=== PATIENT | female | born 1995 | race Caucasian/White ===

== ENCOUNTER 2023-10-18 23:40 | Emergency (ER) | payer MEDICAID ==
[~2023-10-18] VITALS: Ht 157.5 cm; Wt 61.7 kg
[2023-10-18 23:50] VITALS: BP_SYST 132; PULSE 80; RESP 19; TEMP 97.1; O2SAT 98
[2023-10-19 01:03] LABS: INFLUENZA TYPE A Negative (NEGATIVE); INFLUENZA TYPE B NEGATIVE (NEGATIVE)
[2023-10-19 01:20] LABS: STREPTOCOCCUS A SCREEN (RAPID) NEGATIVE (NEGATIVE)
[2023-10-19] MEDS ORDERED: ZIT250 PO (02:40)
[2023-10-19] MEDS ORDERED: CODE10LI PO (02:42)
[2023-10-19] MEDS ORDERED: GUAI100S14 PO (02:42)
[2023-10-19 02:48] VITALS: BP_SYST 132; PULSE 80; RESP 19; TEMP 97.1; O2SAT 98
== END 2023-10-19 02:48 | disposition home or self-care (01) ==
LOC: SED 23:40
DX: J20.9 Acute bronchitis, unspecified (principal); R07.9 Chest pain, unspecified; R05.9 Cough, unspecified; R51.9 Headache, unspecified; R11.2 Nausea with vomiting, unspecified; Z79.899 Other long term (current) drug therapy; Z20.822 Contact with and (suspected) exposure to COVID-19
CPT/HCPCS: 36415; 71046-TC; 81025; 84484; 86403; 87081; 93005; 99285